=== PATIENT | male | born 1980 | race Caucasian/White ===

== ENCOUNTER 2017-12-14 19:30 | Emergency (ER) | payer BC ==
[2017-12-14 19:32] VITALS: BP 151/95; PULSE 71; RESP 16; TEMP 97.7; O2SAT 100
[2017-12-14 22:00] LABS: BILIRUBIN, URINE NEG (NEG); BLOOD, URINE NEG (NEG); GLUCOSE,URINE NEG (NEG); KETONE, URINE NEG (NEG); NITRITE,URINE NEG (NEG); URINE COLOR LIGHT-YELLOW (YELLW/STRAW); URINE LEUKOCYTE ESTERASE NEG (NEG)
[2017-12-14] MEDS ORDERED: LORazepam 1 MG TAB PO ONE (22:00)
--- NOTE | 2017-12-14 22:14 | PD ---
HPI Chief Complaint: General Weakness Time Seen by Provider: 21:41 Travel History International Travel<30 days: No Contact w/Intl Traveler<30days: No Traveled to known affect area: No History of Present Illness HPI 37yo M with anxiety here with multiple complaints. Said he has been on vacation and drinking a lot of alcohol. Said he had some tingling in his right foot that is intermittent. Also feels like his fingers are cold. Said he does have more anxiety after drinking alcohol. Said last time he took lorazepam was last night. Denies any fever, cough, chest pain, sob, n/v, abdominal pain, focal weakness or numbness or trauma. PFSH Social History Tobacco Use: No Allergies-Medications (Allergen,Severity, Reaction): Coded Allergies: No Known Allergies (Unverified , 12/14/17) Reported Meds & Prescriptions Reported Meds & Active Scripts Active Reported Lamictal (Lamotrigine) 150 Mg Tab 150 Mg PO DAILY Ativan (Lorazepam) 0.5 Mg Tab 0.5 Mg PO HS PRN Propecia (Finasteride (Alopecia)) 1 Mg Tab Metoprolol Tartrate 25 Mg Tab 25 Mg PO DAILY Review of Systems Except as stated in HPI: all other systems reviewed are Neg Physical Exam Narrative GENERAL: 37yo M anxious appearing. SKIN: Focused skin assessment warm/dry. HEAD: Atraumatic. Normocephalic. EYES: Pupils equal and round. No scleral icterus. No injection or drainage. ENT: No nasal bleeding or discharge. Mucous membranes pink and moist. NECK: Trachea midline. No JVD. CARDIOVASCULAR: Regular rate and rhythm. No murmur appreciated. RESPIRATORY: No accessory muscle use. Clear to auscultation. Breath sounds equal bilaterally. GASTROINTESTINAL: Abdomen soft, non-tender, nondistended. MUSCULOSKELETAL: No obvious deformities. No clubbing. No cyanosis. No edema. NEUROLOGICAL: Awake and alert. No obvious cranial nerve deficits. Motor grossly within normal limits. Normal speech. PSYCHIATRIC: Anxious appearing. Data Data Last Documented VS Vital Signs Date Time Temp Pulse Resp B/P (MAP) Pulse Ox O2 Delivery O2 Flow Rate FiO2 12/15/17 00:11 12/14/17 19:32 97.7 71 16 100 Room Air Orders Orders Complete Blood Count With Diff (12/14/17 19:52) Basic Metabolic Panel (Bmp) (12/14/17 19:52) Urinalysis - C+S If Indicated (12/14/17 19:52) Creatine Kinase (Cpk) (12/14/17 19:52) Lorazepam (Ativan) (12/14/17 22:00) Ed Discharge Order (12/14/17 23:38) Labs Laboratory Tests Test 12/14/17 20:21 12/14/17 21:14 12/14/17 22:10 Urine Color LIGHT-YELLOW Urine Turbidity CLEAR Urine pH 7.0 Urine Specific [place] 1.003 Urine Protein NEG mg/dL Urine Glucose (UA) NEG mg/dL Urine Ketones NEG mg/dL Urine Occult Blood NEG Urine Nitrite NEG Urine Bilirubin NEG Urine Urobilinogen LESS THAN 2.0 MG/DL Urine Leukocyte Esterase NEG Microscopic Urinalysis Comment CULT NOT INDICATED Blood Urea Nitrogen 9 MG/DL Creatinine 0.65 MG/DL Random Glucose 93 MG/DL Calcium Level 8.8 MG/DL Sodium Level 137 MEQ/L Potassium Level 3.7 MEQ/L Chloride Level 101 MEQ/L Carbon Dioxide Level 27.0 MEQ/L Anion Gap 9 MEQ/L Estimat Glomerular Filtration Rate 138 ML/MIN Total Creatine Kinase 286 U/L White Blood Count 6.0 TH/MM3 Red Blood Count 4.19 MIL/MM3 Hemoglobin 13.9 GM/DL Hematocrit 39.9 % Mean Corpuscular Volume 95.3 FL Mean Corpuscular Hemoglobin 33.1 PG Mean Corpuscular Hemoglobin Concent 34.7 % Red Cell Distribution Width 12.6 % Platelet Count 171 TH/MM3 Mean Platelet Volume 7.9 FL Neutrophils (%) (Auto) 76.7 % Lymphocytes (%) (Auto) 16.7 % Monocytes (%) (Auto) 5.5 % Eosinophils (%) (Auto) 0.9 % Basophils (%) (Auto) 0.2 % Neutrophils # (Auto) 4.6 TH/MM3 Lymphocytes # (Auto) 1.0 TH/MM3 Monocytes # (Auto) 0.3 TH/MM3 Eosinophils # (Auto) 0.1 TH/MM3 Basophils # (Auto) 0.0 TH/MM3 CBC Comment DIFF FINAL Differential Comment MDM Medical Decision Making Medical Screen Exam Complete: Yes Emergency Medical Condition: Yes Differential Diagnosis Anxiety vs. electrolyte abnormality vs. dehydration Narrative Course 37yo M with multiple complaints. Impression is more anxiety. Labs reviewed, no leukocytosis. H/H normal. CPK normal. BMP unremarkable. UA negative. Pt given ativan 1mg PO which improved symptoms. Return precautions given. Diagnosis Primary Impression: Anxiety Patient Instructions: General Instructions Departure Forms: Tests/Procedures Additional Instructions: Please follow up with your primary care physician in 2-3 days. Return to the ED if symptoms worsen. Med/Other Pt SpecificInfo: No Change to Meds Disposition: 01 DISCHARGE HOME Condition: Stable Elisabet Walker DO Dec 14, 2017 22:13
[2017-12-14] MEDS ORDERED: METO25TA3 PO (22:19)
[2017-12-14] MEDS ORDERED: LAMO150 PO (22:19)
[2017-12-14] MEDS ORDERED: LORA-392 PO (22:19)
[2017-12-14] MEDS ORDERED: PROP1TAB (22:19)
[2017-12-14 22:24] LABS: AUTOMATED NEUTROPHIL # 4.6 TH/MM3 (1.8-7.7); BASOPHIL % 0.2 % (0.0-2.0); EOSINOPHIL # 0.1 TH/MM3 (0-0.4); EOSINOPHIL % 0.9 % (0.0-4.0); HEMATOCRIT 39.9 % (39.0-51.0); HEMOGLOBIN 13.9 GM/DL (13.0-17.0); LYMPH % 16.7 % (9.0-44.0); MEAN CELL VOLUME 95.3 FL (80.0-100.0); MEAN CORPUSCULAR HEMOGLOBIN 33.1 PG (27.0-34.0); MEAN CORPUSCULAR HGB CONC 34.7 % (32.0-36.0); MEAN PLATELET VOLUME 7.9 FL (7.0-11.0); MONO % 5.5 % (0.0-8.0); MONOCYTE # 0.3 TH/MM3 (0-0.9); NEUT % 76.7 % (16.0-70.0); PLATELET COUNT 171 TH/MM3 (150-450); RED BLOOD COUNT 4.19 MIL/MM3 (4.50-5.90); RED CELL DISTRIBUTION WIDTH 12.6 % (11.6-17.2)
[2017-12-14 22:31] LABS: CALCIUM 8.8 MG/DL (8.5-10.1); CREATININE 0.65 MG/DL (0.60-1.30)
== END 2017-12-15 00:19 | disposition home or self-care (01) ==
LOC: NEPD 19:30
DX: F41.9 Anxiety disorder, unspecified (principal); R53.1 Weakness
CPT/HCPCS: 80048; 81001; 82550; 85025; 99283